=== PATIENT | male | born 1970 | race Caucasian/White ===

== ENCOUNTER 2023-05-11 06:43 | Outpatient (OUT) | payer BC, SELFPAY ==
[2023-05-11 07:30] LABS: Anion Gap 7.3; BUN Creatinine Ratio 10.6; Calcium 8.5 mg/dL (8.5-10.1); Carbon Dioxide 33.7 mmol/L (21.0-32.0); Chloride 101 mmol/L (98-107); Estimated GFR (African America >60 (>=60); Estimated GFR (Non-African Ame >60 (>=60); Glucose 139 mg/dL (74-106); Sodium 138 mmol/L (136-145)
== END 2023-05-11 06:44 | disposition home or self-care (01) ==
LOC: LAB 06:48
DX: Z01.812 Encounter for preprocedural laboratory examination (principal)
CPT/HCPCS: 36415; 80048